=== PATIENT | female | born 1945 | race Caucasian/White ===

== ENCOUNTER → 2016-10-09 | Outpatient (CLI) | payer MEDICARE, BC ==
[~2016-10-09] MED LIST: BALANCE B-501 EACH PO; BENICAR HCT 401 EAC1 PO; CALCIUM WITH V1 EAC2 PO; CRESTOR5 MG PO; LEVOTHROID (SY88 MCG PO; MIRAPEX0.125 MG PO; THERA-VITE W/ B1 TAB PO; VITAMIN C500 M1 PO; VITAMIN D1000 UNIT PO
== END | disposition disaster alternative care site (69) ==
LOC: GRAD 10:14
DX: M54.16 Radiculopathy, lumbar region (principal); M54.9 Dorsalgia, unspecified; M47.896 Other spondylosis, lumbar region; M41.9 Scoliosis, unspecified; S33.130A Subluxation of L3/L4 lumbar vertebra, initial encounter; Z98.890 Other specified postprocedural states; X58.XXXD Exposure to other specified factors, subsequent encounter

== ENCOUNTER → 2016-10-19 | Outpatient (CLI) | payer MEDICARE, BC | END | disposition disaster alternative care site (69) | LOC: GOPD 10-15 → GRAD 13:18 → GOPD 14:00 | PROC: 3E0T3BZ Introduction of Anesthetic Agent into Peripheral Nerves and Plexi, Percutaneous Approach (ICD-10-PCS; principal; 2016-10-19) | PROC: 3E0T33Z Introduction of Anti-inflammatory into Peripheral Nerves and Plexi, Percutaneous Approach (ICD-10-PCS; 2016-10-19) | DX: M54.16 Radiculopathy, lumbar region (principal); M54.5 Low back pain | CPT/HCPCS: J1040 ==

== ENCOUNTER → 2016-12-03 | Outpatient (CLI) | payer MEDICARE, BC | END | disposition disaster alternative care site (69) | LOC: GPOC 11-27 11:00 → GRAD 13:13 → GPOC 14:00 | PROC: 3E0R33Z Introduction of Anti-inflammatory into Spinal Canal, Percutaneous Approach (ICD-10-PCS; principal; 2016-12-03) | PROC: 3E0R3BZ Introduction of Anesthetic Agent into Spinal Canal, Percutaneous Approach (ICD-10-PCS; 2016-12-03) | DX: M48.06 Spinal stenosis, lumbar region (principal); M54.16 Radiculopathy, lumbar region; M54.5 Low back pain | CPT/HCPCS: J1040 ==